=== PATIENT | female | born 1995 | race Caucasian/White ===

== ENCOUNTER 2017-10-31 19:06 | Emergency (ER) | payer SELFPAY ==
[~2017-10-31] VITALS: Ht 162.6 cm; Wt 106.6 kg
--- NOTE | 2017-10-31 19:09 | ED.ADGEN ---
Past History Past Medical History: No Pertinent History Past Surgical History: Tonsillectomy Smoking: Non-smoker Alcohol Use: None Drug Use: None Adult General Chief Complaint Chief Complaint " .. I ve had a cough, wheezing.. and this lesion on my nose...about a week now.. I ve been on 5 days of Augmentin.. and it is up setting my stomach HPI HPI Patient is a 22 year old female who presents with above hx and complaints upper respiratory infections. Recently started on Augmentin at [facility]. clinic on Sat. Pt. wheezing and chest wall pain and coughing has not improved. Pt. has complaints of Rt facial, ear and nose pain. Has a zoster blisters to tip of Rt nose. Pt, does have hx of chicken pox as child. No recent history of immunosuppression, no history of travel. No history of specific ill contacts. Patient up-to-date with vaccinations. Patient does smoke both tobacco and marijuana. Patient has been working excessive hours at work and feels rundown. Patient does have a history of GERD. There is family history of GERD. Patient did have history of asthma as a child. Review of Systems Review of Systems Constitutional: Denies fever or chills [] Eyes: Denies change in visual acuity, redness, or eye pain [] HENT: Denies nasal congestion or sore throat []- lesion on tip of right nose herpetic zoster Respiratory: History of cough and wheezing Cardiovascular: No additional information not addressed in HPI [] GI: Denies abdominal pain, nausea, vomiting, bloody stools or diarrhea [] : Denies dysuria or hematuria [] Musculoskeletal: Denies back pain or joint pain [] Integument: Denies rash or skin lesions [] Neurologic: Denies headache, focal weakness or sensory changes [] Endocrine: Denies polyuria or polydipsia [] All other systems were reviewed and found to be within normal limits, except as documented in this note. Family History Family History GERD Current Medications Current Medications Current Medications Medications (Trade) Dose Ordered Sig/Joaquin Start Time Stop Time Status Last Admin Dose Admin Acyclovir (Zovirax) 800 mg 1X ONCE 10/31/17 20:00 10/31/17 20:01 DC 10/31/17 20:00 800 MG Albuterol Sulfate (Ventolin Hfa) 2 puff 1X ONCE 10/31/17 20:00 10/31/17 20:01 DC Prednisone (Prednisone) 50 mg 1X ONCE 10/31/17 20:00 10/31/17 20:01 DC 10/31/17 19:58 50 MG Finish course of Augmentin Allergies Allergies Allergies Coded Allergies Type Severity Reaction Last Updated Verified No Known Drug Allergies 09/25/13 No Physical Exam Physical Exam Constitutional: Well developed, well nourished, moderately acute distress, non- toxic appearance. [] HENT: Normocephalic, atraumatic, bilateral external ears normal, oropharynx moist, no oral exudates, nose small cluster of herpetic blisters on right side of nose Eyes: PERRLA, EOMI, conjunctiva normal, no discharge. [] Neck: Normal range of motion, no tenderness, supple, no stridor. [] Cardiovascular:Heart rate regular rhythm, no murmur [] Lungs & Thorax: Bilateral breath sounds equal with scattered wheezes on auscultation [] Abdomen: Bowel sounds normal, soft, no tenderness, no masses, no pulsatile masses. [Obese. Skin: Warm, dry, no erythema, no rash. [] Back: No tenderness, no CVA tenderness. [] Extremities: No tenderness, no cyanosis, no clubbing, ROM intact, no edema. [] Neurologic: Alert and oriented X 3, normal motor function, normal sensory function, no focal deficits noted. [] Psychologic: Affect anxious, judgement normal, mood normal. [] Current Patient Data Vital Signs Vital Signs Date Time Temp Pulse Resp B/P (MAP) Pulse Ox O2 Delivery O2 Flow Rate FiO2 10/31/17 20:08 92 18 136/86 (103) 97 Room Air 10/31/17 19:14 99.2 EKG EKG [] Radiology/Procedures Radiology/Procedures [] Course & Med Decision Making Course & Med Decision Making Pertinent Labs and Imaging studies reviewed. (See chart for details). She take acyclovir 5 times a day or famciclovir 3 times a day. Patient take Tylenol and ibuprofen for pain. Patient take Benadryl and Sudafed as needed for nasal congestion and drainage. Patient to take the Augmentin as directed food. Follow- up primary care. Return if any concerns. Tylenol ibuprofen for pain and discomfort. Ice patient has long she has blisters on her nose she will be infectious. [] Final Impression Final Impression 1. Hx. Upper Respiratory Infection 2. Tobacco and Marijuana Use 3. Viral Syndrome-herpetic zoster 4. Bronchitis [] Dragon Disclaimer Dragon Disclaimer This electronic medical record was generated, in whole or in part, using a voice recognition dictation system. SANDRA COOPER MD Oct 31, 2017 19:09
[2017-10-31] MEDS ORDERED: PRED50TA PO (19:45)
[2017-10-31] MEDS ORDERED: FAMC500T PO (19:45)
[2017-10-31] MEDS ORDERED: ACYC800T PO (19:45)
[2017-10-31] MEDS ORDERED: predniSONE 10 MG TABLET PO ONE (20:00)
[2017-10-31] MEDS ORDERED: ALBUTEROL SULFATE 8GM INHALER. INH ONE (20:00)
[2017-10-31] MEDS ORDERED: ACYCLOVIR 200 MG CAPSULE PO ONE (20:00)
[2017-10-31 20:08] VITALS: BP 136/86
== END 2017-10-31 20:10 | disposition home or self-care (01) ==
LOC: ER 19:06
DX: B34.9 Viral infection, unspecified (principal); B02.9 Zoster without complications; J40 Bronchitis, not specified as acute or chronic; F12.90 Cannabis use, unspecified, uncomplicated; Z72.0 Tobacco use
CPT/HCPCS: 99283; J7512; J7613

== ENCOUNTER 2018-01-14 15:28 | Emergency (ER) | payer SELFPAY ==
[~2018-01-14] VITALS: Ht 162.6 cm; Wt 110.7 kg
[~2018-01-14 15:28] MED LIST: ACYC800T PO; FAMC500T PO; PRED50TA PO
[2018-01-14] MEDS ORDERED: CEPH500T PO (16:02)
[2018-01-14] MEDS ORDERED: VALA10005 PO (16:02)
--- NOTE | 2018-01-14 16:02 | PHYS DOC ---
Past History Past Medical History: No Pertinent History Past Surgical History: Tonsillectomy Smoking: Non-smoker Alcohol Use: Occasionally Drug Use: Marijuana Adult General Chief Complaint Chief Complaint: SKIN PROBLEM HPI HPI 22-year-old female presents with a painful lesion on her nose. She states she has had this before and was told it was zoster. She states over the last couple days it's come back on her nose and is very painful. She denies any eye pain or visual changes. She denies any other lesions.[] Review of Systems Review of Systems Constitutional: Denies fever or chills [] Eyes: Denies change in visual acuity, redness, or eye pain [] HENT: Denies nasal congestion or sore throat [] Respiratory: Denies cough or shortness of breath [] Cardiovascular: No additional information not addressed in HPI [] GI: Denies abdominal pain, nausea, vomiting, bloody stools or diarrhea [] : Denies dysuria or hematuria [] Musculoskeletal: Denies back pain or joint pain [] Integument: Per history of present illness[] Neurologic: Denies headache, focal weakness or sensory changes [] Endocrine: Denies polyuria or polydipsia [] All other systems were reviewed and found to be within normal limits, except as documented in this note. Allergies Allergies Allergies Coded Allergies Type Severity Reaction Last Updated Verified No Known Drug Allergies 09/25/13 No Physical Exam Physical Exam Constitutional: Well developed, well nourished, no acute distress, non-toxic appearance. [] HENT: Normocephalic, atraumatic, bilateral external ears normal, oropharynx moist, no oral exudates, nose normal. [] Eyes: PERRLA, EOMI, conjunctiva normal, no discharge. [] Neck: Normal range of motion, no tenderness, supple, no stridor. [] Cardiovascular:Heart rate regular rhythm, no murmur [] Lungs & Thorax: Bilateral breath sounds clear to auscultation [] Abdomen: Bowel sounds normal, soft, no tenderness, no masses, no pulsatile masses. [] Skin: Lesion on the tip of her nose concerning for Dora sign. [] Back: No tenderness, no CVA tenderness. [] Extremities: No tenderness, no cyanosis, no clubbing, ROM intact, no edema. [] Neurologic: Alert and oriented X 3, normal motor function, normal sensory function, no focal deficits noted. [] Psychologic: Affect normal, judgement normal, mood normal. [] EKG EKG [] Radiology/Procedures Radiology/Procedures [] Course & Med Decision Making Course & Med Decision Making Pertinent Labs and Imaging studies reviewed. (See chart for details) [] Dragon Disclaimer Dragon Disclaimer This electronic medical record was generated, in whole or in part, using a voice recognition dictation system. Departure Departure: Impression: Primary Impression: Herpes zoster Disposition: HOME, SELF-CARE Condition: STABLE Referrals: PCP,NO (PCP) Patient Instructions: Shingles Additional Instructions: If the lesion worsens please return immediately for further evaluation. If he develop any pain in her eye please return to the emergency department immediately. 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
[2018-01-14 16:12] VITALS: BP 101/64
== END 2018-01-14 16:12 | disposition home or self-care (01) ==
LOC: ER 15:28
DX: B02.9 Zoster without complications (principal)
CPT/HCPCS: 99283